=== PATIENT | male | born 1955 | race African-American/Black ===

== ENCOUNTER 2021-06-25 16:20 | Emergency (ER) | payer OTHER ==
[~2021-06-25] VITALS: Ht 185.4 cm; Wt 94.0 kg
[2021-06-25 17:55] VITALS: BP 140/72
== END 2021-06-25 19:27 | disposition home or self-care (01) ==
LOC: EMS 16:22
DX: Z45.2 Encounter for adjustment and management of vascular access device (principal); I10 Essential (primary) hypertension; J45.909 Unspecified asthma, uncomplicated; F17.210 Nicotine dependence, cigarettes, uncomplicated
CPT/HCPCS: 99283; Z7502

== ENCOUNTER 2025-02-13 13:42 | Inpatient (IN) | payer OTHER ==
[~2025-02-13] VITALS: Ht 185.4 cm; Wt 87.9 kg
[~2025-02-13 13:42] MED LIST: AMLO-257 PO; AMOX-457 PO; ATOR40TA28 PO; GABA-1181 PO; GABA-1404 PO; HYDR-5256 PO; METO25 PO; MORP15TA9 PO; PANT-31 PO; TEMA15CA PO; TRAM50TA5 PO
[2025-02-13] MEDS ORDERED: SODIUM CHLORIDE 0.9% 100 ML ONE (14:00)
[2025-02-13] MEDS ORDERED: IOHEXOL 350 MG/ML 100 ML VIAL ONE (14:00)
[2025-02-13 14:35] LABS: PLATELET COUNT (AUTO) 289 K/uL (150-450); RED BLOOD CELL COUNT(AUTO) 3.97 MIL/uL (4.50-5.90); RED CELL DISTRIBUTION WIDTH 14.7 % (11.5-14.5); WHITE BLOOD COUNT (AUTO) 7.4 K/uL (4.5-11.0)
[2025-02-13 14:45] LABS: CALCIUM, TOTAL 8.2 mg/dL (8.8-10.5); CREATININE 1.76 mg/dL (0.60-1.30); GLOMERULAR FILTR. RATE CALC 47.0 mL/min (>60); GLUCOSE,RANDOM 96.0 mg/dL (70-110); SODIUM SERUM 128.0 mmol/L (136-145); UREA NITROGEN, BLOOD 39.0 mg/dL (7-18)
[2025-02-13 14:49] LABS: ASPARTATE AMINOTRANSFERASE 16.0 U/L (15-37); CHOL/HDL RATIO 4.2 (4.2-7.3); LDL CHOL (CALC.) 116.0 mg/dL (0-130); TOTAL PROTEIN, SERUM 5.9 g/dL (6.4-8.2)
[2025-02-13 14:51] LABS: TROPONIN I-HIGH SENSITIVITY 11 ng/L (<76)
[2025-02-13 15:29] LABS: APPEARANCE,URINE TURBID (CLEAR); GLUCOSE, URINE (UA) NEGATIVE (NEGATIVE); LEUKOCYTE ESTERASE ,URINE LARGE (NEGATIVE); NITRATE,URINE NEGATIVE (NEGATIVE); OCCULT BLOOD,URINE LARGE (NEGATIVE); SPECIFIC GRAVITIY, URINE 1.030 (1.003-1.030)
[2025-02-13 15:35] LABS: ALCOHOL, URINE DRUG SCREEN NEGATIVE (NEGATIVE); AMPHET/METH SCREEN,URINE NEGATIVE (NEGATIVE); BARBITURATE SCREEN, URINE NEGATIVE (NEGATIVE); CANNABINOID SCREEN,URINE POSITIVE (NEGATIVE); COCAINE SCREEN,URINE NEGATIVE (NEGATIVE); METHADONE SCREEN, URINE NEGATIVE (NEGATIVE)
[2025-02-13 15:39] LABS: PH,URINE DRUG SCREEN 8.0 (5.0-8.0); SULFOSALICYLIC ACID,URINE 3+ (Negative)
[2025-02-13 15:40] LABS: SQUAMOUS EPITHELIAL CELL,UR Rare /LPF (None Seen); TRIPLE PHOSPHATE CRYSTAL,UR Few /LPF (None Seen)
[2025-02-13] MEDS ORDERED: ACETAMINOPHEN 325 MG TABLET PO PRN (16:30)
[2025-02-13] MEDS ORDERED: BISACODYL 10 MG RECTAL RECTAL SUPPOSITORY PR PRN (16:30)
[2025-02-13] MEDS: POTASSIUM CHLORIDE 40 MEQ in SODIUM CHLORIDE 0.9% 1,000 ML IV ONE (16:52)
[2025-02-13] MEDS: CefTRIAXone 1 GM/DEXTROSE 50 ML IV ONE (16:55)
[2025-02-13] MEDS: DEXTROSE 5%-0.45% SODIUM CHL 1,000 ML IV ONE (16:55)
[2025-02-13 20:24] LABS: TROPONIN I-HIGH SENSITIVITY 11 ng/L (<76)
[2025-02-13 22:00] VITALS: BP 147/94; PULSE 93; RESP 19; TEMP 97.2; O2SAT 97
[2025-02-13 23:57] VITALS: BP 174/94; PULSE 86; RESP 19; TEMP 97; O2SAT 100
[2025-02-14] MEDS: HEPARIN SODIUM,PORCINE 5,000 UNITS/ML VIAL SQ SCH
[2025-02-14 02:18] VITALS: BP 146/78; RESP 19; O2SAT 100
[2025-02-14 02:36] LABS: TROPONIN I-HIGH SENSITIVITY 10 ng/L (<76)
[2025-02-14 05:59] VITALS: BP 141/85; PULSE 98; RESP 19; TEMP 97.7; O2SAT 97
[2025-02-14 06:22] LABS: PLATELET COUNT (AUTO) 289 K/uL (150-450); RED BLOOD CELL COUNT(AUTO) 4.25 MIL/uL (4.50-5.90); RED CELL DISTRIBUTION WIDTH 15.0 % (11.5-14.5); WHITE BLOOD COUNT (AUTO) 8.3 K/uL (4.5-11.0)
[2025-02-14 06:29] LABS: CALCIUM, TOTAL 9.0 mg/dL (8.8-10.5); CREATININE 1.37 mg/dL (0.60-1.30); GLOMERULAR FILTR. RATE CALC > 60 mL/min (>60); GLUCOSE,RANDOM 110 mg/dL (70-110); SODIUM SERUM 134 mmol/L (136-145); UREA NITROGEN, BLOOD 31 mg/dL (7-18)
[2025-02-14] MEDS: ONDANSETRON HCL 4 MG/2 ML VIAL IVP PRN (07:05)
[2025-02-14 08:29] VITALS: BP 163/84; PULSE 96; RESP 19; TEMP 98.4; O2SAT 96
[2025-02-14] MEDS: FAMOTIDINE 20 MG TABLET PO SCH (09:47)
[2025-02-14] MEDS: ASPIRIN 81 MG CHEWABLE TABLET PO SCH (09:48)
[2025-02-14] MEDS: ATORVASTATIN CALCIUM 20 MG TABLET PO SCH (09:48)
[2025-02-14 10:42] VITALS: BP 144/81; PULSE 98
[2025-02-14] MEDS: CefTRIAXone 1 GM/DEXTROSE 50 ML IV SCH (12:25)
[2025-02-14] MEDS ORDERED: ALBUTEROL SULFATE 2.5 MG/0.5 ML NEB SOLUTION NEB PRN (15:15)
[2025-02-14 15:54] VITALS: BP 143/86; PULSE 102; RESP 18; TEMP 98.6; O2SAT 96
[2025-02-14 18:21] LABS: GLUCOMETER DEV NAME(LOC) 5N.1D; GLUCOSE,POINT OF CARE 121 MG/DL (70-110)
[2025-02-14 19:45] VITALS: BP 142/79; PULSE 80; RESP 18; TEMP 97.9; O2SAT 99
[2025-02-15 00:14] VITALS: BP 154/81; PULSE 101; RESP 18; TEMP 98.2; O2SAT 97
[2025-02-15 04:22] VITALS: BP 127/87; PULSE 98; RESP 16; TEMP 97.3; O2SAT 99
[2025-02-15 06:33] LABS: PLATELET COUNT (AUTO) 307 K/uL (150-450); RED BLOOD CELL COUNT(AUTO) 4.21 MIL/uL (4.50-5.90); RED CELL DISTRIBUTION WIDTH 15.2 % (11.5-14.5); WHITE BLOOD COUNT (AUTO) 7.4 K/uL (4.5-11.0)
[2025-02-15 06:55] LABS: CALCIUM, TOTAL 9.0 mg/dL (8.8-10.5); CREATININE 1.17 mg/dL (0.60-1.30); GLOMERULAR FILTR. RATE CALC > 60 mL/min (>60); GLUCOSE,RANDOM 76 mg/dL (70-110); SODIUM SERUM 131 mmol/L (136-145); UREA NITROGEN, BLOOD 20 mg/dL (7-18)
[2025-02-15 07:49] VITALS: BP 157/85; PULSE 100; RESP 18; TEMP 98.8; O2SAT 100
[2025-02-15 11:02] VITALS: BP 154/90; PULSE 102; RESP 19; TEMP 98; O2SAT 98
[2025-02-15 15:45] VITALS: BP 144/75; PULSE 97; RESP 18; TEMP 97.9; O2SAT 97
[2025-02-15 20:15] VITALS: BP 148/87; PULSE 107; RESP 18; TEMP 98.1; O2SAT 97
[2025-02-16 00:04] VITALS: BP 156/85; PULSE 98; RESP 18; TEMP 98.2; O2SAT 97
[2025-02-16 04:11] VITALS: BP 151/82; PULSE 104; RESP 17; TEMP 97.7; O2SAT 100
[2025-02-16 06:06] LABS: PLATELET COUNT (AUTO) 304 K/uL (150-450); RED BLOOD CELL COUNT(AUTO) 4.19 MIL/uL (4.50-5.90); RED CELL DISTRIBUTION WIDTH 15.0 % (11.5-14.5); WHITE BLOOD COUNT (AUTO) 7.5 K/uL (4.5-11.0)
[2025-02-16 06:38] LABS: CALCIUM, TOTAL 8.8 mg/dL (8.8-10.5); CREATININE 1.15 mg/dL (0.60-1.30); GLOMERULAR FILTR. RATE CALC > 60 mL/min (>60); GLUCOSE,RANDOM 87 mg/dL (70-110); SODIUM SERUM 132 mmol/L (136-145); UREA NITROGEN, BLOOD 14 mg/dL (7-18)
[2025-02-16 08:17] VITALS: BP 150/110; PULSE 112; RESP 17; TEMP 98.1; O2SAT 97
[2025-02-16] MEDS: METOPROLOL TARTRATE 50 MG TABLET PO SCH (10:44)
[2025-02-16 12:22] VITALS: BP 115/56; PULSE 78; RESP 19; TEMP 97.9; O2SAT 96
[2025-02-16 16:46] VITALS: BP 119/71; PULSE 72; RESP 17; TEMP 98.1; O2SAT 99
[2025-02-16 20:23] VITALS: BP 128/72; PULSE 80; RESP 18; TEMP 98.1; O2SAT 99
[2025-02-16] MEDS: TEMAZEPAM 15 MG CAPSULE PO PRN (20:44)
[2025-02-16] MEDS: ASPIRIN 81 MG CHEWABLE TABLET PO SCH (20:45)
[2025-02-17 00:02] VITALS: BP 120/73; PULSE 75; RESP 16; TEMP 98.1; O2SAT 100
[2025-02-17 04:12] VITALS: BP 126/75; PULSE 73; RESP 16; TEMP 97.7; O2SAT 96
[2025-02-17 06:23] LABS: PLATELET COUNT (AUTO) 304 K/uL (150-450); RED BLOOD CELL COUNT(AUTO) 4.32 MIL/uL (4.50-5.90); RED CELL DISTRIBUTION WIDTH 15.3 % (11.5-14.5); WHITE BLOOD COUNT (AUTO) 7.6 K/uL (4.5-11.0)
[2025-02-17 06:45] LABS: CALCIUM, TOTAL 8.6 mg/dL (8.8-10.5); CREATININE 1.08 mg/dL (0.60-1.30); GLOMERULAR FILTR. RATE CALC > 60 mL/min (>60); GLUCOSE,RANDOM 101 mg/dL (70-110); SODIUM SERUM 132 mmol/L (136-145); UREA NITROGEN, BLOOD 14 mg/dL (7-18)
[2025-02-17 08:11] VITALS: BP 115/74; PULSE 76; RESP 18; TEMP 97.8; O2SAT 100
[2025-02-17 12:29] VITALS: BP 119/75; PULSE 69; RESP 19; TEMP 97.3; O2SAT 100
[2025-02-17 16:19] VITALS: BP 130/76; PULSE 69; RESP 18; TEMP 98.1; O2SAT 99
[2025-02-17 20:00] VITALS: BP 154/84; PULSE 75; RESP 17; TEMP 98.2; O2SAT 99
[2025-02-18] VITALS: BP 137/84; PULSE 72; RESP 18; TEMP 97.9; O2SAT 99
[2025-02-18 02:20] VITALS: BP 134/88; PULSE 70; RESP 18; TEMP 98.4; O2SAT 99
[2025-02-18 09:30] VITALS: BP 135/74; PULSE 70; RESP 18; TEMP 98.3; O2SAT 99
[2025-02-18] MEDS ORDERED: SODIUM CHLORIDE 0.9% 500 ML IV ONE (14:56)
[2025-02-18 16:35] VITALS: BP 132/104; PULSE 82; RESP 18; TEMP 98.1; O2SAT 99
[2025-02-18 19:46] VITALS: BP 140/85; PULSE 85; RESP 18; TEMP 97.9; O2SAT 99
[2025-02-18] MEDS: MORPHINE SULFATE 15 MG ER TABLET PO SCH (20:07)
[2025-02-18] MEDS: GABAPENTIN 300 MG CAPSULE PO SCH (20:07)
[2025-02-19 04:31] VITALS: BP 141/83; PULSE 64; RESP 18; TEMP 97.8; O2SAT 99
[2025-02-19 09:06] VITALS: BP 137/79; PULSE 69; RESP 18; TEMP 97.7; O2SAT 100
[2025-02-19 16:54] VITALS: BP 125/66; PULSE 63; RESP 18; TEMP 98.2; O2SAT 98
[2025-02-19 20:11] VITALS: BP 127/78; PULSE 72; RESP 18; TEMP 98.4; O2SAT 96
[2025-02-20 04:23] VITALS: BP 114/74; PULSE 67; RESP 18; TEMP 98.2; O2SAT 99
[2025-02-20 10:06] VITALS: BP 125/72; PULSE 70; RESP 18; TEMP 98.8; O2SAT 98
[2025-02-20 15:43] VITALS: BP 121/73; PULSE 63; RESP 18; TEMP 98.2; O2SAT 98
[2025-02-20 18:27] LABS: PLATELET COUNT (AUTO) 295 K/uL (150-450); RED BLOOD CELL COUNT(AUTO) 4.20 MIL/uL (4.50-5.90); RED CELL DISTRIBUTION WIDTH 15.3 % (11.5-14.5); WHITE BLOOD COUNT (AUTO) 8.4 K/uL (4.5-11.0)
[2025-02-20 18:44] LABS: ASPARTATE AMINOTRANSFERASE 16.0 U/L (15-37); CALCIUM, TOTAL 8.7 mg/dL (8.8-10.5); CREATININE 2.05 mg/dL (0.60-1.30); GLOMERULAR FILTR. RATE CALC 39.0 mL/min (>60); GLUCOSE,RANDOM 142.0 mg/dL (70-110); SODIUM SERUM 132.0 mmol/L (136-145); TOTAL PROTEIN, SERUM 6.9 g/dL (6.4-8.2); UREA NITROGEN, BLOOD 22.0 mg/dL (7-18)
[2025-02-20 20:08] VITALS: BP 137/81; PULSE 71; RESP 18; TEMP 98.6; O2SAT 98
[2025-02-21 04:46] VITALS: BP 118/95; PULSE 70; RESP 18; TEMP 98.2; O2SAT 97
[2025-02-21] MEDS: SODIUM CHLORIDE 0.9% 1,000 ML IV ONE (09:06)
[2025-02-21 09:13] VITALS: BP 127/79; PULSE 72; RESP 19; TEMP 97.9; O2SAT 99
[2025-02-21 19:47] VITALS: BP 126/74; PULSE 71; RESP 18; TEMP 99; O2SAT 100
[2025-02-22 03:43] VITALS: BP 141/69; PULSE 74; RESP 18; TEMP 98.6; O2SAT 97
[2025-02-22 07:24] LABS: CALCIUM, TOTAL 8.9 mg/dL (8.8-10.5); CREATININE 1.41 mg/dL (0.60-1.30); GLOMERULAR FILTR. RATE CALC > 60 mL/min (>60); GLUCOSE,RANDOM 111 mg/dL (70-110); SODIUM SERUM 136 mmol/L (136-145); UREA NITROGEN, BLOOD 19 mg/dL (7-18)
[2025-02-22 08:00] VITALS: BP 132/74; PULSE 79; RESP 20; TEMP 98.1; O2SAT 100
[2025-02-22] MEDS: SODIUM CHLORIDE 0.9% 1,000 ML IV ONE (09:57)
[2025-02-22 15:42] VITALS: BP 109/60; PULSE 70; RESP 20; TEMP 98.1; O2SAT 99
[2025-02-22 19:48] VITALS: BP 134/74; PULSE 69; RESP 18; TEMP 99; O2SAT 98
[2025-02-22 22:36] LABS: GLUCOMETER DEV NAME(LOC) 6N.1C; GLUCOSE,POINT OF CARE 139 MG/DL (70-110)
[2025-02-23 04:31] VITALS: BP 141/84; PULSE 69; RESP 18; TEMP 97.5; O2SAT 99
[2025-02-23 07:40] LABS: GLUCOMETER DEV NAME(LOC) 4E.2; GLUCOSE,POINT OF CARE 119 MG/DL (70-110)
[2025-02-23 08:51] VITALS: BP 131/75; PULSE 71; RESP 20; TEMP 97.9; O2SAT 99
== END 2025-02-23 12:00 | DRG 91 ==
LOC: EMS 13:50 → EDH 16:18 → 5S 21:11 → 6S 02-18 02:00
PROVIDERS: ADMIT Internal Medicine; ATTEND Internal Medicine
DX: G92.8 Other toxic encephalopathy (principal); R53.2 Functional quadriplegia; N39.0 Urinary tract infection, site not specified; N17.9 Acute kidney failure, unspecified; I69.354 Hemiplegia and hemiparesis following cerebral infarction affecting left non-dominant side; N43.3 Hydrocele, unspecified; F01.50 Vascular dementia, unspecified severity, without behavioral disturbance, psychotic disturbance, mood disturbance, and anxiety; I10 Essential (primary) hypertension; N50.89 Other specified disorders of the male genital organs; M67.449 Ganglion, unspecified hand; Z87.891 Personal history of nicotine dependence
CPT/HCPCS: 70496; 70498; 70551; 71045; 76870; 80048; 80053; 80061; 80307; 81001; 81002; 82948; 82962; 83036; 84484; 85025; 85610; 85730; 86850; 86900; 86901; 87086; 92526; 92610; 93005; 96365; 97110; 97112; 97163; 97167; 97760; 99291; J0360; J0696; J1644; J2405; J3480; J7030; J7040; J7050; 36415-L1; 36415-TC; 70450; 70450-TC